=== PATIENT | female | born 1990 | race Caucasian/White ===

== ENCOUNTER 2017-09-15 14:37 | Emergency (ER) | payer MEDICAID ==
[2017-09-15] MEDS: IBUPROFEN 600 MG TAB PO (15:32)
[2017-09-15 15:53] LABS: ADD UMIC YES; UR ASCORBIC ACID NEGATIVE (NEGATIVE); UR BACTERIA FEW /HPF (NONE SEEN); UR BILIRUBIN (Dip) NEGATIVE (NEGATIVE); UR BLOOD (Dip) 2+ mg/dL (NEGATIVE); UR CLARITY SLIGHTLY CLOUDY (CLEAR); UR COLOR YELLOW (YELLOW); UR GLUCOSE (Dip) NEGATIVE (NEGATIVE); UR KETONES (Dip) NEGATIVE (NEGATIVE); UR LEUKOCYTE ESTERASE (Dip) 2+ Leu/ul (NEGATIVE); UR MUCUS FEW /HPF (NONE SEEN); UR NITRITE (Dip) POSITIVE (NEGATIVE); UR RBC 9 /HPF (0-5); UR SQUAMOUS EPITHELIAL CELL FEW /HPF (FEW); UR TOTAL PROTEIN (Dip) 2+ mg/dl (NEGATIVE); UR UROBILINOGEN (Dip) 2+ mg/dL (NEGATIVE); UR WBC > 182 /HPF (0-5)
[2017-09-15] MEDS: CEFTRIAXONE 250 MG INJ IM (17:17)
[2017-09-15] MEDS: LIDOCAINE 1% (MDV) 20 ML INJ SC (17:17)
[2017-09-15] MEDS: AZITHROMYCIN 250 MG TAB PO (17:17)
== END 2017-09-15 17:35 | disposition home or self-care (01) ==
LOC: FTE 14:37
DX: N89.8 Other specified noninflammatory disorders of vagina (principal); N30.00 Acute cystitis without hematuria
CPT/HCPCS: 81001; 87591; 96372; 99284-25

== ENCOUNTER 2018-04-13 15:55 | Emergency (ER) | payer MEDICAID ==
[2018-04-13] MEDS: morphine 2 MG INJ IV (16:21)
[2018-04-13] MEDS: SOD CHLORIDE 0.9% 1,000 ML IV (16:22)
[2018-04-13] MEDS: DEXAMETHASONE 10 MG/ML 1 ML INJ IV (16:22)
[2018-04-13] MEDS: CEFTRIAXONE 2 GM/50 ML (PMX) 50 ML IVPB (16:28)
== END 2018-04-13 18:02 | disposition home or self-care (01) ==
LOC: FTE 15:55
DX: J03.90 Acute tonsillitis, unspecified (principal)
CPT/HCPCS: 81025; 96365; 96375; 99284-25